=== PATIENT | female | born 1930 | race Caucasian/White ===

== ENCOUNTER 2019-02-20 19:34 | Inpatient (IN) | payer MEDICAID ==
[~2019-02-20] VITALS: Ht 160 cm; Wt 58.1 kg
[~2019-02-20 19:34] MED LIST: ALPR0.5T PO; AMLO5TAB4 PO; ASPI-1393 PO; ENAL20TA PO; FERR-63 PO; LOSA1TAB40 PO; METF-414 PO; METO-539 PO; RANI150C12 PO
[2019-02-20] MEDS ORDERED: ONDANSETRON HCL 4MG/2ML INJ IV STA (20:09)
[2019-02-20] MEDS ORDERED: SODIUM CHLORIDE 0.9% 1,000 ML IV ONE (20:09)
[2019-02-20 20:28] LABS: BASOPHILS % 0.6 % (0.0-2.0); EOSINOPHILS % 4.8 % (0.0-5.0); HEMATOCRIT. 31.3 % (36.0-48.0); HEMOGLOBIN. 10.5 g/dL (12.0-16.0); MEAN CORPUSCULAR HEMOGLOBIN 30.3 pg (28.0-32.0); MEAN PLATELET VOLUME 6.8 fl (7.4-10.4); MONOCYTES % 7.7 % (2.0-8.0); NEUTROPHILS % 61.9 % (40.0-76.0); PLATELET 326 x1000/uL (130-400); RED BLOOD CELL COUNT 3.48 mill/uL (4.2-5.4); RED CELL DISTRIBUTION WIDTH 13.8 % (11.6-14.6)
[2019-02-20 20:33] LABS: CHLORIDE 93 mEq/L (98-107)
[2019-02-20 20:34] LABS: INR 1.1
[2019-02-20] MEDS ORDERED: LORAZEPAM 0.5MG TABLET PO ONE (22:15)
[2019-02-20] MEDS ORDERED: SODIUM CHLORIDE 0.9% 1,000 ML IV SCH (23:05)
[2019-02-20] MEDS ORDERED: GUAIFENESIN 200MG/10ML SUGAR FREE UDC PO PRN (23:15)
[2019-02-20] MEDS ORDERED: ONDANSETRON HCL 4MG/2ML INJ IV PRN (23:15)
[2019-02-20] MEDS ORDERED: DOCUSATE SODIUM 100MG CAPSULE PO PRN (23:15)
[2019-02-20] MEDS ORDERED: CLONIDINE 0.1MG TABLET PO PRN (23:15)
[2019-02-20] MEDS ORDERED: MAGNESIUM/ALUMINUM HYDROXIDE/SIMETHICONE 30ML UDC PO PRN (23:15)
[2019-02-20] MEDS ORDERED: IPRATROPIUM/ALBUTEROL 0.5-3(2.5)MG/3ML NEB INH PRN (23:15)
[2019-02-20] MEDS ORDERED: ACETAMINOPHEN 325MG TABLET PO PRN (23:15)
[2019-02-21] VITALS: BP 120/60
[2019-02-21] MEDS ORDERED: LATA2.5D2 LEFTEYE (01:09)
[2019-02-21] MEDS ORDERED: BRIM5DRO6 EACHEYE (01:09)
[2019-02-21] MEDS ORDERED: TIMO5DRO27 LEFTEYE (01:10)
[2019-02-21] MEDS ORDERED: SPIR25TA6 PO (01:13)
[2019-02-21] MEDS ORDERED: LISI10TA5 PO (01:13)
[2019-02-21] MEDS ORDERED: CARV12.545 PO (01:13)
[2019-02-21] MEDS ORDERED: PRAV40TA58 PO (01:13)
[2019-02-21 02:09] LABS: CHLORIDE 100 mEq/L (98-107)
[2019-02-21] MEDS ORDERED: DEXTROSE 50% WATER 50ML SYRINGE IV PRN (02:30)
[2019-02-21 04:00] VITALS: BP 117/63
[2019-02-21] MEDS: BLOOD SUGAR DIAGNOSTIC STRIP TEST SCH ×4 (06:31→21:12)
[2019-02-21] MEDS: INSULIN LISPRO 100 UNITS/ML SUBCUT SCH ×4 (06:31→21:00)
[2019-02-21 07:40] LABS: *BARBITURATES SCREEN URINE NEGATIVE (NEGATIVE); *COCAINE SCREEN URINE NEGATIVE (NEGATIVE); CANNABINOID URINE SCREEN NEGATIVE (NEGATIVE); METHADONE URINE SCREEN NEGATIVE (NEGATIVE); OPIATES URINE SCREEN NEGATIVE (NEGATIVE); PHENCYCLIDINE URINE SCREEN NEGATIVE (NEGATIVE)
[2019-02-21 07:41] LABS: *AMPHETAMINES SCREEN URINE NEGATIVE (NEGATIVE); *BENZODIAZEPINES SCREEN URINE NEGATIVE (NEGATIVE)
[2019-02-21 08:00] VITALS: BP 113/65
[2019-02-21 09:30] LABS: CLARITY URINE CLEAR (CLEAR); COLOR URINE YELLOW (YELLOW); KETONES URINE NEGATIVE (NEGATIVE); LEUKOCYTE ESTERASE URINE 3+ (NEGATIVE); NITRITE URINE NEGATIVE (NEGATIVE); OCCULT BLOOD URINE TRACE (NEGATIVE); PH URINE 7.5 (4.5-8.0); PROTEIN URINE NEGATIVE (NEGATIVE); SPECIFIC GRAVITY URINE 1.005 (1.005-1.030); UROBILINOGEN URINE 0.2 E.U./dL (0.2-1.0)
[2019-02-21 09:39] LABS: SODIUM URINE RANDOM 49 mEq/L
[2019-02-21] MEDS ORDERED: LATANOPROST 0.005% OPHTH DROPS 2.5ML EACHEYE SCH (10:00)
[2019-02-21] MEDS: ASPIRIN 81MG TABLET PO SCH (10:06)
[2019-02-21] MEDS: AMLODIPINE 5MG TABLET PO SCH (10:07)
[2019-02-21] MEDS: CARVEDILOL 12.5MG TABLET PO SCH ×2 (10:07→17:30)
[2019-02-21] MEDS: ENOXAPARIN 40MG/0.4ML SYR SUBCUT SCH (10:08)
[2019-02-21] MEDS ORDERED: DORZ10DR8 LEFTEYE (10:27)
[2019-02-21] MEDS: SODIUM CHLORIDE 0.45% 1,000 ML IV SCH (10:51)
[2019-02-21 12:00] VITALS: BP 117/65
[2019-02-21] MEDS: LEVOFLOXACIN 250MG PREMIX 50 ML IV SCH (12:07)
[2019-02-21 12:14] LABS: BASOPHILS % 0.7 % (0.0-2.0); EOSINOPHILS % 4.4 % (0.0-5.0); HEMATOCRIT. 32.3 % (36.0-48.0); HEMOGLOBIN. 10.7 g/dL (12.0-16.0); LYMPHOCYTES % 20.8 % (20.0-50.0); MEAN CORPUSCULAR HEMOGLOBIN 30.2 pg (28.0-32.0); MEAN PLATELET VOLUME 7.3 fl (7.4-10.4); MONOCYTES % 7.7 % (2.0-8.0); NEUTROPHILS % 66.4 % (40.0-76.0); PLATELET 332 x1000/uL (130-400); RED BLOOD CELL COUNT 3.55 mill/uL (4.2-5.4); RED CELL DISTRIBUTION WIDTH 13.7 % (11.6-14.6)
[2019-02-21 12:26] LABS: CHLORIDE 100 mEq/L (98-107)
[2019-02-21 12:33] LABS: PHOSPHORUS 3.1 mg/dL (2.5-4.9)
[2019-02-21 12:34] LABS: LDL CHOLESTEROL 73 mg/dL (5-100)
[2019-02-21 12:36] LABS: HDL CHOLESTEROL 35 mg/dL (40-59)
[2019-02-21 12:42] LABS: CREATINE KINASE 34 IU/L (26-192); TOTAL IRON BINDING CAPACITY 253 ug/dL (250-450)
[2019-02-21 16:00] VITALS: BP 118/56
[2019-02-21 16:22] LABS: CREATINE KINASE 27 IU/L (26-192)
[2019-02-21 16:23] LABS: CREATINE KINASE MB FRACTION < 1.0 ng/mL (0.5-3.6)
[2019-02-21 20:00] VITALS: BP 102/56
[2019-02-21] MEDS: ATORVASTATIN CALCIUM 40MG TABLET PO SCH (21:16)
[2019-02-21] MEDS: FAMOTIDINE 20MG TABLET PO SCH (21:16)
[2019-02-21] MEDS: BRIMONIDINE 0.2% OPHTH DROPS 5ML EACHEYE SCH (21:17)
[2019-02-21] MEDS: TIMOLOL MALEATE 0.5% OPHTH DROPS 5ML LEFTEYE SCH (21:17)
[2019-02-21] MEDS: DORZOLAMIDE 2% OPHTH 10 ML BOTTLE LEFTEYE SCH (21:17)
[2019-02-21] MEDS: LATANOPROST 0.005% OPHTH DROPS 2.5ML LEFTEYE SCH (21:41)
[2019-02-21] MEDS ORDERED: ZOLPIDEM TARTRATE 5MG TABLET PO PRN (23:45)
[2019-02-22] VITALS: BP 82/48
[2019-02-22 04:00] VITALS: BP 126/63
[2019-02-22] MEDS: BLOOD SUGAR DIAGNOSTIC STRIP TEST SCH ×4 (06:11→21:47)
[2019-02-22] MEDS: INSULIN LISPRO 100 UNITS/ML SUBCUT SCH ×4 (06:31→21:00)
[2019-02-22] MEDS: SODIUM CHLORIDE 0.45% 1,000 ML IV SCH (06:32)
[2019-02-22 07:04] LABS: BASOPHILS % 0.5 % (0.0-2.0); EOSINOPHILS % 4.4 % (0.0-5.0); HEMOGLOBIN. 9.5 g/dL (12.0-16.0); MEAN CORPUSCULAR HEMOGLOBIN 30.8 pg (28.0-32.0); MEAN CORPUSCULAR VOLUME 90.9 fL (81.0-99.0); MEAN PLATELET VOLUME 7.3 fl (7.4-10.4); NEUTROPHILS % 60.1 % (40.0-76.0); PLATELET 299 x1000/uL (130-400); RED BLOOD CELL COUNT 3.08 mill/uL (4.2-5.4); RED CELL DISTRIBUTION WIDTH 13.8 % (11.6-14.6)
[2019-02-22 07:28] LABS: CHLORIDE 99 mEq/L (98-107)
[2019-02-22 08:05] VITALS: BP 154/64
[2019-02-22] MEDS: ASPIRIN 81MG TABLET PO SCH (08:45)
[2019-02-22] MEDS: CARVEDILOL 12.5MG TABLET PO SCH ×2 (08:46→17:31)
[2019-02-22] MEDS: BRIMONIDINE 0.2% OPHTH DROPS 5ML EACHEYE SCH ×2 (08:49→21:46)
[2019-02-22] MEDS: DORZOLAMIDE 2% OPHTH 10 ML BOTTLE LEFTEYE SCH ×2 (08:50→21:46)
[2019-02-22] MEDS: TIMOLOL MALEATE 0.5% OPHTH DROPS 5ML LEFTEYE SCH ×2 (08:50→21:46)
[2019-02-22] MEDS: AMLODIPINE 5MG TABLET PO SCH (08:54)
[2019-02-22] MEDS: ENOXAPARIN 40MG/0.4ML SYR SUBCUT SCH (09:00)
[2019-02-22] MEDS: LEVOFLOXACIN 250MG PREMIX 50 ML IV SCH (11:06)
[2019-02-22 12:20] VITALS: BP 108/58
[2019-02-22] MEDS: POLYETHYLENE GLYCOL 3350 (17GM) 1 DOSE PACK PO SCH (13:55)
[2019-02-22 16:27] VITALS: BP 130/66
[2019-02-22] MEDS ORDERED: LACTULOSE 20G/30ML UDC PO NR (17:15)
[2019-02-22 20:00] VITALS: BP 107/59
[2019-02-22] MEDS ORDERED: ALPRAZOLAM 0.25 MG TABLET PO SCH (21:00)
[2019-02-22] MEDS: LATANOPROST 0.005% OPHTH DROPS 2.5ML LEFTEYE SCH (21:46)
[2019-02-22] MEDS: FAMOTIDINE 20MG TABLET PO SCH (21:47)
[2019-02-22] MEDS: ATORVASTATIN CALCIUM 40MG TABLET PO SCH (21:47)
[2019-02-23] VITALS (7 sets, daily range): BP systolic 96–113; BP diastolic 49–57
[2019-02-23 05:53] LABS: CHLORIDE 97 mEq/L (98-107)
[2019-02-23 06:06] LABS: PHOSPHORUS 3.9 mg/dL (2.5-4.9)
[2019-02-23 06:24] LABS: BASOPHILS % 0.4 % (0.0-2.0); EOSINOPHILS % 2.3 % (0.0-5.0); HEMATOCRIT. 31.2 % (36.0-48.0); HEMOGLOBIN. 10.3 g/dL (12.0-16.0); LYMPHOCYTES % 16.4 % (20.0-50.0); MEAN CORPUSCULAR HEMOGLOBIN 30.2 pg (28.0-32.0); MEAN CORPUSCULAR VOLUME 91.5 fL (81.0-99.0); MEAN PLATELET VOLUME 7.3 fl (7.4-10.4); MONOCYTES % 5.6 % (2.0-8.0); NEUTROPHILS % 75.3 % (40.0-76.0); PLATELET 271 x1000/uL (130-400); RED BLOOD CELL COUNT 3.42 mill/uL (4.2-5.4); RED CELL DISTRIBUTION WIDTH 13.8 % (11.6-14.6)
[2019-02-23] MEDS: INSULIN LISPRO 100 UNITS/ML SUBCUT SCH ×3 (07:15→17:02)
[2019-02-23] MEDS: DORZOLAMIDE 2% OPHTH 10 ML BOTTLE LEFTEYE SCH (08:50)
[2019-02-23] MEDS: TIMOLOL MALEATE 0.5% OPHTH DROPS 5ML LEFTEYE SCH (08:50)
[2019-02-23] MEDS: BRIMONIDINE 0.2% OPHTH DROPS 5ML EACHEYE SCH (08:51)
[2019-02-23] MEDS: ASPIRIN 81MG TABLET PO SCH (08:52)
[2019-02-23] MEDS: AMLODIPINE 5MG TABLET PO SCH (08:52)
[2019-02-23] MEDS: POLYETHYLENE GLYCOL 3350 (17GM) 1 DOSE PACK PO SCH (08:52)
[2019-02-23] MEDS: CARVEDILOL 12.5MG TABLET PO SCH (08:52)
[2019-02-23] MEDS: ENOXAPARIN 40MG/0.4ML SYR SUBCUT SCH (08:53)
[2019-02-23] MEDS: BLOOD SUGAR DIAGNOSTIC STRIP TEST SCH ×2 (10:50→17:00)
[2019-02-23] MEDS ORDERED: LEVOFLOXACIN 250MG TABLET PO SCH (11:00)
[2019-02-23] MEDS ORDERED: MAGNESIUM 2 G PREMIX 50 ML IV NR (12:00)
[2019-02-23] MEDS ORDERED: SODIUM CHLORIDE 0.9% 1,000 ML IV SCH (15:30)
[2019-02-23] MEDS ORDERED: LEVO250T58 MT (17:03)
[2019-02-23] MEDS ORDERED: COR6 PO (17:03)
[2019-02-23] MEDS ORDERED: CARVEDILOL 6.25 MG TABLET PO SCH (21:00)
== END 2019-02-23 20:55 | disposition home or self-care (01) | DRG 463 ==
LOC: ER 19:34 → 5WST 22:25 → EDBEDREQTM 22:28 → EDBEDREQ 22:28 → ENRESERV 22:49
PROVIDERS: ADMIT Internal Medicine; ATTEND Internal Medicine
DX: N39.0 Urinary tract infection, site not specified (principal); I95.9 Hypotension, unspecified; I11.0 Hypertensive heart disease with heart failure; E87.1 Hypo-osmolality and hyponatremia; E44.1 Mild protein-calorie malnutrition; E83.42 Hypomagnesemia; I50.22 Chronic systolic (congestive) heart failure; I50.20 Unspecified systolic (congestive) heart failure; D64.9 Anemia, unspecified; E11.9 Type 2 diabetes mellitus without complications; E78.00 Pure hypercholesterolemia, unspecified; E78.5 Hyperlipidemia, unspecified; I25.10 Atherosclerotic heart disease of native coronary artery without angina pectoris; I25.2 Old myocardial infarction; I44.7 Left bundle-branch block, unspecified; T50.2X5A Adverse effect of carbonic-anhydrase inhibitors, benzothiadiazides and other diuretics, initial encounter; Z79.82 Long term (current) use of aspirin; Z82.49 Family history of ischemic heart disease and other diseases of the circulatory system; Z88.0 Allergy status to penicillin; Z90.49 Acquired absence of other specified parts of digestive tract; Z79.84 Long term (current) use of oral hypoglycemic drugs; Z68.22 Body mass index [BMI] 22.0-22.9, adult
CPT/HCPCS: 36415; 71045; 80048; 80061; 80305; 82533; 82550; 82553; 82728; 82962; 83036; 83540; 83550; 83605; 83735; 83880; 83930; 83935; 84100; 84295; 84300; 84443; 84484; 93005; 93306; 93970; 96374; 99291; J1650; J1815; J1956; J2405; J3475; J7030

== ENCOUNTER 2019-02-25 02:22 | Inpatient (IN) | payer MEDICAID ==
[~2019-02-25] VITALS: Ht 152.4 cm; Wt 64.0 kg
[~2019-02-25 02:22] MED LIST changes: -AMLO5TAB4 PO; +BRIM5DRO6 EACHEYE; +COR6 PO; +DORZ10DR8 LEFTEYE; -ENAL20TA PO; -FERR-63 PO; +LATA2.5D2 LEFTEYE; -LOSA1TAB40 PO; -METO-539 PO; +PRAV40TA58 PO; +TIMO5DRO27 LEFTEYE
[2019-02-25 03:28] LABS: BASOPHILS % 0.5 % (0.0-2.0); HEMATOCRIT. 34.8 % (36.0-48.0); HEMOGLOBIN. 11.6 g/dL (12.0-16.0); LYMPHOCYTES % 24.8 % (20.0-50.0); MEAN CORPUSCULAR HEMOGLOBIN 30.2 pg (28.0-32.0); MEAN CORPUSCULAR VOLUME 90.5 fL (81.0-99.0); MONOCYTES % 5.6 % (2.0-8.0); NEUTROPHILS % 66.1 % (40.0-76.0); RED BLOOD CELL COUNT 3.85 mill/uL (4.2-5.4); RED CELL DISTRIBUTION WIDTH 14.2 % (11.6-14.6)
[2019-02-25 03:34] LABS: CHLORIDE 96 mEq/L (98-107)
[2019-02-25 03:37] LABS: PROTHROMBIN TIME 10.8 sec (9.6-11.0)
[2019-02-25 03:38] LABS: ETHANOL BLOOD < 10 mg/dL
[2019-02-25 04:07] LABS: PLATELET 296 x1000/uL (130-400)
[2019-02-25 04:08] LABS: MEAN PLATELET VOLUME 7.8 fl (7.4-10.4)
[2019-02-25] MEDS ORDERED: SODIUM CHLORIDE 0.9% 1,000 ML IV ONE (04:30)
[2019-02-25 07:37] LABS: CLARITY URINE CLOUDY (CLEAR); COLOR URINE YELLOW (YELLOW); KETONES URINE NEGATIVE (NEGATIVE); LEUKOCYTE ESTERASE URINE 3+ (NEGATIVE); NITRITE URINE NEGATIVE (NEGATIVE); OCCULT BLOOD URINE TRACE (NEGATIVE); PH URINE 7.5 (4.5-8.0); PROTEIN URINE NEGATIVE (NEGATIVE); SPECIFIC GRAVITY URINE 1.008 (1.005-1.030); UROBILINOGEN URINE 0.2 E.U./dL (0.2-1.0)
[2019-02-25 07:51] LABS: *AMPHETAMINES SCREEN URINE NEGATIVE (NEGATIVE); *BARBITURATES SCREEN URINE NEGATIVE (NEGATIVE); *BENZODIAZEPINES SCREEN URINE NEGATIVE (NEGATIVE); *COCAINE SCREEN URINE NEGATIVE (NEGATIVE)
[2019-02-25 07:52] LABS: CANNABINOID URINE SCREEN NEGATIVE (NEGATIVE); METHADONE URINE SCREEN NEGATIVE (NEGATIVE); OPIATES URINE SCREEN NEGATIVE (NEGATIVE); PHENCYCLIDINE URINE SCREEN NEGATIVE (NEGATIVE)
[2019-02-25] MEDS ORDERED: DIPHENHYDRAMINE 50MG/ML VIAL IV PRN (08:15)
[2019-02-25] MEDS ORDERED: CEFTRIAXONE 1 G PREMIX 50 ML IV SCH (08:15)
[2019-02-25] MEDS ORDERED: HYDROCODONE/ACETAMINOPHEN 5/325MG TABLET PO PRN (08:15)
[2019-02-25] MEDS ORDERED: ONDANSETRON HCL 4MG/2ML INJ IV PRN (08:15)
[2019-02-25] MEDS ORDERED: GUAIFENESIN 200MG/10ML SUGAR FREE UDC PO PRN (08:15)
[2019-02-25] MEDS ORDERED: CLONIDINE 0.1MG TABLET PO PRN (08:15)
[2019-02-25] MEDS ORDERED: MAGNESIUM/ALUMINUM HYDROXIDE/SIMETHICONE 30ML UDC PO PRN (08:15)
[2019-02-25] MEDS ORDERED: ACETAMINOPHEN 325MG TABLET PO PRN (08:15)
[2019-02-25] MEDS ORDERED: DOCUSATE SODIUM 100MG CAPSULE PO PRN (08:15)
[2019-02-25] MEDS ORDERED: IPRATROPIUM/ALBUTEROL 0.5-3(2.5)MG/3ML NEB INH PRN (08:15)
[2019-02-25 08:37] LABS: PHOSPHORUS 2.8 mg/dL (2.5-4.9)
[2019-02-25 09:30] VITALS: BP 122/67
[2019-02-25 10:57] VITALS: BP 122/67
[2019-02-25] MEDS ORDERED: ENOXAPARIN 40MG/0.4ML SYR SUBCUT SCH (11:00)
[2019-02-25] MEDS ORDERED: DEXTROSE 50% WATER 50ML SYRINGE IV PRN (11:45)
[2019-02-25 12:00] VITALS: BP 145/64
[2019-02-25] MEDS: INSULIN LISPRO 100 UNITS/ML SUBCUT SCH ×3 (12:40→21:00)
[2019-02-25] MEDS: BLOOD SUGAR DIAGNOSTIC STRIP TEST SCH ×3 (13:09→21:00)
[2019-02-25] MEDS: CEFTRIAXONE 1 G PREMIX 50 ML IV SCH (14:29)
[2019-02-25] MEDS ORDERED: LEVO250T58 PO (15:41)
[2019-02-25 17:00] VITALS: BP 109/61
[2019-02-25 19:16] LABS: CREATINE KINASE MB FRACTION 1.1 ng/mL (0.5-3.6)
[2019-02-25 20:00] VITALS: BP 102/58
[2019-02-25] MEDS ORDERED: ALPRAZOLAM 0.5 MG TABLET PO SCH (21:00)
[2019-02-26] VITALS (7 sets, daily range): BP systolic 95–116; BP diastolic 51–58
[2019-02-26 00:47] LABS: CREATINE KINASE 32 IU/L (26-192)
[2019-02-26 00:49] LABS: CREATINE KINASE MB FRACTION < 1.0 ng/mL (0.5-3.6)
[2019-02-26] MEDS: BLOOD SUGAR DIAGNOSTIC STRIP TEST SCH ×3 (06:10→17:45)
[2019-02-26] MEDS: INSULIN LISPRO 100 UNITS/ML SUBCUT SCH ×3 (06:10→17:40)
[2019-02-26 06:37] LABS: BASOPHILS % 0.9 % (0.0-2.0); EOSINOPHILS % 3.5 % (0.0-5.0); HEMATOCRIT. 30.7 % (36.0-48.0); HEMOGLOBIN. 10.4 g/dL (12.0-16.0); LYMPHOCYTES % 25.8 % (20.0-50.0); MEAN CORPUSCULAR VOLUME 91.2 fL (81.0-99.0); MEAN PLATELET VOLUME 7.8 fl (7.4-10.4); MONOCYTES % 8.3 % (2.0-8.0); NEUTROPHILS % 61.5 % (40.0-76.0); PLATELET 237 x1000/uL (130-400); RED BLOOD CELL COUNT 3.37 mill/uL (4.2-5.4); RED CELL DISTRIBUTION WIDTH 14.1 % (11.6-14.6)
[2019-02-26 07:17] LABS: CHLORIDE 104 mEq/L (98-107)
[2019-02-26 07:26] LABS: HDL CHOLESTEROL 39 mg/dL (40-59); LDL CHOLESTEROL 48 mg/dL (5-100)
[2019-02-26] MEDS: CEFTRIAXONE 1 G PREMIX 50 ML IV SCH (08:52)
[2019-02-26] MEDS ORDERED: ENOXAPARIN 30MG/0.3ML SYR SUBCUT SCH (14:00)
== END 2019-02-26 18:04 | disposition home health service (06) | DRG 463 ==
LOC: ER 04:23 → 8WST 05:49 → EDBEDREQTM 05:52 → EDBEDREQ 05:52 → ENRESERV 08:01
PROVIDERS: ADMIT Internal Medicine; ATTEND Internal Medicine
DX: N39.0 Urinary tract infection, site not specified (principal); G93.41 Metabolic encephalopathy; E87.1 Hypo-osmolality and hyponatremia; D64.9 Anemia, unspecified; I25.10 Atherosclerotic heart disease of native coronary artery without angina pectoris; E78.5 Hyperlipidemia, unspecified; I10 Essential (primary) hypertension; I25.2 Old myocardial infarction; Z88.0 Allergy status to penicillin; Z79.82 Long term (current) use of aspirin; Z79.899 Other long term (current) drug therapy
CPT/HCPCS: 36415; 71045; 80061; 80305; 80320; 82140; 82550; 82553; 82962; 83036; 83735; 84100; 84443; 84484; 93005; 93970; 96360; 99291; J0696; J1650; J1815; J7030; J7040; J7050; G0480